=== PATIENT | female | born 1975 | race African-American/Black ===

== ENCOUNTER 2023-02-17 22:13 | Emergency (ER) | payer OTHER ==
[2023-02-17 22:20] VITALS: RESP 18; TEMP 98.2; BMI 51.6
[2023-02-17 22:49] VITALS: PULSE 75
[2023-02-17] MEDS ORDERED: LIDOCAINE 5% TOPICAL PATCH TP ONE (23:13)
[2023-02-17] MEDS ORDERED: ACETAMINOPHEN 325 MG TABLET (FP) PO ONE (23:13)
[2023-02-17] MEDS ORDERED: KETOROLAC TROMETHAMINE 30 MG/1 ML VIAL IM ONE (23:13)
[2023-02-17] MEDS ORDERED: LIDOCAINE 5% TOPICAL PATCH ONE (23:19)
[2023-02-17] MEDS ORDERED: KETOROLAC TROMETHAMINE 30 MG/1 ML VIAL ONE (23:19)
[2023-02-17] MEDS ORDERED: ACETAMINOPHEN 325 MG TABLET (FP) ONE (23:19)
[2023-02-18 00:09] VITALS: BP 182/123
[2023-02-18] MEDS ORDERED: amLODIPine BESYLATE 10 MG TABLET (FP) PO ONE (00:09)
[2023-02-18] MEDS ORDERED: amLODIPine BESYLATE 10 MG TABLET (FP) ONE (00:11)
[2023-02-18] MEDS ORDERED: LIDOCAINE PATCH REMOVAL MC ONE (12:00)
== END 2023-02-18 01:40 | disposition home or self-care (01) ==
LOC: JER 22:13
PROC: 3E0233Z Introduction of Anti-inflammatory into Muscle, Percutaneous Approach (ICD-10-PCS; principal; 2023-02-17)
DX: M54.2 Cervicalgia (principal); I10 Essential (primary) hypertension; V49.40XA Driver injured in collision with unspecified motor vehicles in traffic accident, initial encounter; Y93.I9 Activity, other involving external motion; Y92.410 Unspecified street and highway as the place of occurrence of the external cause
CPT/HCPCS: 99284-25